=== PATIENT | male | born 1985 | race Caucasian/White ===

== ENCOUNTER 2019-04-22 20:04 | Emergency (ER) | payer OTHER ==
[~2019-04-22] VITALS: Ht 177.8 cm; Wt 102.1 kg
[2019-04-22] MEDS ORDERED: TUSNEL LIQUID178 ML PO ×2 (22:41→22:46)
[2019-04-22] MEDS ORDERED: DOLOGEN CAPLET1 EACH PO ×2 (22:41→22:46)
[2019-04-22] MEDS ORDERED: OSEL75CA PO ×2 (22:41→22:46)
== END 2019-04-22 22:51 | disposition home or self-care (01) ==
LOC: ER 20:04
DX: J11.1 Influenza due to unidentified influenza virus with other respiratory manifestations (principal); B34.9 Viral infection, unspecified